=== PATIENT | female | born 1965 | race Caucasian/White ===

== ENCOUNTER 2018-03-28 17:28 | Observation (INO) ==
[2018-03-28 17:59] LABS: Bilirubin,Urine Negative (Negative); Blood,Urine Negative (Negative); Clarity,Urine Clear (Clear); Color,Urine Light Yellow (Yellow); Glucose,Urine (UA) Normal (Normal); Ketones,Urine Negative (Negative); Leukocyte Esterase,Urine Negative (Negative); Nitrite,Urine Negative (Negative); Protein,Urine Negative (Neg-Trace); Urobilinogen,Urine Normal (Normal)
--- NOTE | 2018-03-28 18:01 | Emergency Department Note ---
Disposition Clinical Impression: Chest pain Disposition: Admitted As Inpatient Condition: Good Referrals: Hansa Leon MD [Primary Care Provider] - Forms: ED Satisfaction Letter Time of Disposition: 20:07 Chest Pain HPI - General Chief Complaint: ED General Medical Stated Complaint: EPISODES OF FATIGE, HEADACHE, ABD/CHEST PAIN Time Seen by Provider: 03/28/18 18:01 Source: patient Mode of arrival: ambulatory Limitations: no limitations Vital Signs Reviewed: Yes Nursing Notes Reviewed: Yes - History of Present Illness HPI Narrative: 52-year-old female who presents today with intermittent chest pains in the center of her chest that radiated down her left arm for the last 3 days. She states that it makes her nauseated and lightheaded. She states it comes with a headache. She has not had a cardiac workup in over 5 years since she has never had a catheterization. She states she was stress 5 years ago and was told it was okay. She was watching her grandchildren the other day and could not come in but her pain was the worst 3 days ago and has been intermittent since then. 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 Patient is not a smoker, she states she does have a strong family history of heart disease. Severity scale (1-10): 6 - Related Data Home Medications Medication Instructions Recorded Confirmed Atenolol [Atenolol] 100 mg PO DAILY 04/11/16 03/28/18 Lisinopril [Zestril] 10 mg PO DAILY 04/11/16 03/28/18 Acetaminophen [Tylenol] 650 mg PO Q6HR PRN 11/24/17 03/28/18 Atorvastatin Calcium 80 mg PO QPM 11/24/17 03/28/18 Ibuprofen [Motrin] 800 mg PO Q8HR PRN 11/24/17 03/28/18 Sertraline [Zoloft] 100 mg PO DAILY 11/24/17 03/28/18 Allergies Allergy/AdvReac Type Severity Reaction Status Date / Time No Known Allergies Allergy Verified 12/14/17 07:36 Review of Systems: All other systems are negative except as noted/marked Chart generated with voice recognition software Nursing notes reviewed Old records reviewed Chest Pain PMH - Past Medical History Medical history: Reports: GERD, glaucoma, hyperlipidemia, hypertension, RA Surgical history: Reports: , hysterectomy, TAMEKA/BSO Psychiatric history: Reports: no psych history - Social History Smoking Status: Never smoker Alcohol use: Reports: none Drug use: Reports: none Physical Exam General: NAD, VSS Head: normocephalic, atraumatic Eyes: EOMI, PERRLA mouth: moist mucous membranes Neck: NO CLA, Supple Chest wall: normal rise, no crepitus, no deformity noted Lungs: moving air well, no distress Heart: RRR, no murmur Abd: soft, nontender, BS normal : deferred MSK: strength equal in all four extremities Ext: moves all four extremities, no obvious deformities Skin: cap refill normal, warm, dry neuro : CN2-12 grossly intact, A&Ox3 Psych: normal affect, not anxious - General Limitations: no limitations General appearance: alert Course Course Narrative: Patient presents today with intermittent chest pains for the last 3 days. She is currently chest pain-free. We did 2 sets of troponins which were negative. Her EKG was unremarkable. Chest and a cardiac workup in a while. We discussed staying in the hospital for for ACS rule out. She is comfortable with this plan. I spoke with Dr. Dias at 8:00 at night and he agreed to accept the patient. Orders will be placed. Vital Signs Temperature 98.6 F 03/28/18 17:34 Pulse Rate 68 03/28/18 17:34 Respiratory Rate 16 03/28/18 17:34 Blood Pressure 131/82 03/28/18 17:34 O2 Sat by Pulse Oximetry 95 03/28/18 17:34 Temperature 98.6 F 03/28/18 17:34 Pulse Rate 71 03/28/18 19:56 Respiratory Rate 20 03/28/18 19:56 Blood Pressure 126/77 03/28/18 19:56 O2 Sat by Pulse Oximetry 97 03/28/18 19:56 Oxygen Delivery Oxygen Delivery Room Air Chest Pain - Medical Records Medical records reviewed: Yes I reviewed the patient's medical records. - Lab Data Lab results reviewed: Yes I reviewed the patient's lab results. Result diagrams: 03/28/18 18:32 03/28/18 18:32 Lab Results 03/28/18 03/28/18 03/28/18 Range/Units 17:45 18:32 18:32 WBC (4.3-11.1) K/mcL RBC (3.82-4.97) M/mcL Hgb (11.5-15.4) g/dL Hct (35.3-44.9) % MCV (83.0-100.0) fL MCH (28.0-33.3) pg MCHC (31.6-35.5) g/dL RDW (11.5-14.5) % Plt Count (140-400) K/mcL MPV (9.4-12.4) fL Seg Neutrophils % % Lymphocytes % % Monocytes % % Eosinophils % % Neutrophils # (1.6-8.9) K/mcL Lymphocytes # (0.6-4.6) K/mcL Monocytes # (0.0-1.3) K/mcL Eosinophils # (0.0-0.6) K/mcL PT 10.9 (9.4-12.1) Seconds INR 1.0 APTT 31.7 (26.0-36.0) Seconds Sodium (136-145) mEq/L Potassium (3.5-5.1) mEq/L Chloride (98-107) mEq/L Carbon Dioxide (23-29) mEq/L BUN (6-20) mg/dL Creatinine (0.60-1.20) mg/dL Est GFR ( Amer) (> 60) Est GFR (Non-Af Amer) (> 60) BUN/Creatinine Ratio (6-26) Glucose (70-105) mg/dL Calculated Osmolality (280-300) Calcium (8.6-10.3) mg/dL Magnesium (1.6-2.6) mg/dL Total Bilirubin 0.7 (0.3-1.0) mg/dL Direct Bilirubin 0.1 (0.0-0.2) mg/dL Indirect Bilirubin 0.6 (0.0-1.2) mg/dL AST 32 (13-39) Units/L ALT 60 H (7-52) Units/L Alkaline Phosphatase 122 H (34-104) Units/L Troponin I (< 0.04) ng/mL Serum Total Protein 7.2 (6.4-8.9) g/dL Albumin 4.2 (3.5-5.7) g/dL Globulin 3.0 (2.4-3.5) g/dL Albumin/Globulin Ratio 1.4 (1.1-2.2) Lipase (11-82) Units/L Urine Color Light Yellow (Yellow) Urine Clarity Clear (Clear) Urine pH 7.0 (5.0-8.0) pH Units Ur Specific [place] 1.010 (1.010-1.025) Urine Protein Negative (Neg-Trace) mg/dL Urine Glucose (UA) Normal (Normal) mg/dL Urine Ketones Negative (Negative) mg/dL Urine Blood Negative (Negative) Urine Nitrite Negative (Negative) Urine Bilirubin Negative (Negative) Urine Urobilinogen Normal (Normal) mg/dL Ur Leukocyte Esterase Negative (Negative) Ur Culture Indicated? NO (NO) 03/28/18 03/28/18 03/28/18 Range/Units 18:32 18:32 18:32 WBC 15.9 H (4.3-11.1) K/mcL RBC 4.43 (3.82-4.97) M/mcL Hgb 13.3 (11.5-15.4) g/dL Hct 39.6 (35.3-44.9) % MCV 89.4 (83.0-100.0) fL MCH 30.0 (28.0-33.3) pg MCHC 33.6 (31.6-35.5) g/dL RDW 11.8 (11.5-14.5) % Plt Count 330 (140-400) K/mcL MPV 10.1 (9.4-12.4) fL Seg Neutrophils % 70.0 % Lymphocytes % 26.0 % Monocytes % 2.0 % Eosinophils % 2.0 % Neutrophils # 11.1 H (1.6-8.9) K/mcL Lymphocytes # 4.1 (0.6-4.6) K/mcL Monocytes # 0.3 (0.0-1.3) K/mcL Eosinophils # 0.3 (0.0-0.6) K/mcL PT (9.4-12.1) Seconds INR APTT (26.0-36.0) Seconds Sodium 137 (136-145) mEq/L Potassium 4.0 (3.5-5.1) mEq/L Chloride 101 (98-107) mEq/L Carbon Dioxide 29 (23-29) mEq/L BUN 16 (6-20) mg/dL Creatinine 0.60 (0.60-1.20) mg/dL Est GFR ( Amer) > 60 (> 60) Est GFR (Non-Af Amer) > 60 (> 60) BUN/Creatinine Ratio 27 H (6-26) Glucose 93 (70-105) mg/dL Calculated Osmolality 285 (280-300) Calcium 9.4 (8.6-10.3) mg/dL Magnesium (1.6-2.6) mg/dL Total Bilirubin (0.3-1.0) mg/dL Direct Bilirubin (0.0-0.2) mg/dL Indirect Bilirubin (0.0-1.2) mg/dL AST (13-39) Units/L ALT (7-52) Units/L Alkaline Phosphatase (34-104) Units/L Troponin I < 0.03 (< 0.04) ng/mL Serum Total Protein (6.4-8.9) g/dL Albumin (3.5-5.7) g/dL Globulin (2.4-3.5) g/dL Albumin/Globulin Ratio (1.1-2.2) Lipase 90 H (11-82) Units/L Urine Color (Yellow) Urine Clarity (Clear) Urine pH (5.0-8.0) pH Units Ur Specific [place] (1.010-1.025) Urine Protein (Neg-Trace) mg/dL Urine Glucose (UA) (Normal) mg/dL Urine Ketones (Negative) mg/dL Urine Blood (Negative) Urine Nitrite (Negative) Urine Bilirubin (Negative) Urine Urobilinogen (Normal) mg/dL Ur Leukocyte Esterase (Negative) Ur Culture Indicated? (NO) 03/28/18 03/28/18 Range/Units 18:32 19:29 WBC (4.3-11.1) K/mcL RBC (3.82-4.97) M/mcL Hgb (11.5-15.4) g/dL Hct (35.3-44.9) % MCV (83.0-100.0) fL MCH (28.0-33.3) pg MCHC (31.6-35.5) g/dL RDW (11.5-14.5) % Plt Count (140-400) K/mcL MPV (9.4-12.4) fL Seg Neutrophils % % Lymphocytes % % Monocytes % % Eosinophils % % Neutrophils # (1.6-8.9) K/mcL Lymphocytes # (0.6-4.6) K/mcL Monocytes # (0.0-1.3) K/mcL Eosinophils # (0.0-0.6) K/mcL PT (9.4-12.1) Seconds INR APTT (26.0-36.0) Seconds Sodium (136-145) mEq/L Potassium (3.5-5.1) mEq/L Chloride (98-107) mEq/L Carbon Dioxide (23-29) mEq/L BUN (6-20) mg/dL Creatinine (0.60-1.20) mg/dL Est GFR ( Amer) (> 60) Est GFR (Non-Af Amer) (> 60) BUN/Creatinine Ratio (6-26) Glucose (70-105) mg/dL Calculated Osmolality (280-300) Calcium (8.6-10.3) mg/dL Magnesium 2.0 (1.6-2.6) mg/dL Total Bilirubin (0.3-1.0) mg/dL Direct Bilirubin (0.0-0.2) mg/dL Indirect Bilirubin (0.0-1.2) mg/dL AST (13-39) Units/L ALT (7-52) Units/L Alkaline Phosphatase (34-104) Units/L Troponin I < 0.03 (< 0.04) ng/mL Serum Total Protein (6.4-8.9) g/dL Albumin (3.5-5.7) g/dL Globulin (2.4-3.5) g/dL Albumin/Globulin Ratio (1.1-2.2) Lipase (11-82) Units/L Urine Color (Yellow) Urine Clarity (Clear) Urine pH (5.0-8.0) pH Units Ur Specific [place] (1.010-1.025) Urine Protein (Neg-Trace) mg/dL Urine Glucose (UA) (Normal) mg/dL Urine Ketones (Negative) mg/dL Urine Blood (Negative) Urine Nitrite (Negative) Urine Bilirubin (Negative) Urine Urobilinogen (Normal) mg/dL Ur Leukocyte Esterase (Negative) Ur Culture Indicated? (NO) - Radiology Data Radiology results reviewed: Yes I reviewed the patient's radiology results. EXAMINATION: SINGLE XRAY VIEW OF THE CHEST 03/28/2018 6:22 pm COMPARISON: 05/12/2016 HISTORY: ORDERING SYSTEM PROVIDED HISTORY: chest pain Initial encounter. Acute illness. Chest pain for 2 months. FINDINGS: The lungs are clear. The cardiac and mediastinal contours are normal. There is no pleural effusion or pneumothorax. No acute osseous abnormality is identified. XR/XR chest 1V portable IMPRESSION: No acute cardiopulmonary abnormality. D/ / Marcelo Pink / Marcelo Pink Interpreting Provider: Marcelo Pink - EKG Data EKG attestation: Yes I reviewed and interpreted this EKG. EKG results narrative: EKG interpreted by myself as a sinus rhythm with rate of 64 QTc of [address] elevation I do not a prior EKG for comparison at this time Heart Score - Score History: Highly Suspicious EKG: Normal Age: 45-65 Risk Factors: Equal/Greater than 3 risk factor or history of atherosclerotic disease Troponin: Less than normal limit HEART Score Total: 5
[2018-03-28] MEDS ORDERED: Nitroglycerin 0.4 MG TAB.SUBL SL ONE (18:09)
[2018-03-28] MEDS ORDERED: Aspirin 81 MG TAB.CHEW PO ONE (18:09)
[2018-03-28 18:48] LABS: Hematocrit 39.6 % (35.3-44.9); Hemoglobin 13.3 g/dL (11.5-15.4); Mean Corpuscular HGB Conc 33.6 g/dL (31.6-35.5); Mean Corpuscular Volume 89.4 fL (83.0-100.0); Mean Platelet Volume 10.1 fL (9.4-12.4); Platelet Count 330 K/mcL (140-400); Red Blood Count 4.43 M/mcL (3.82-4.97); Red Cell Distribution Width 11.8 % (11.5-14.5)
[2018-03-28 18:49] LABS: Prothrombin Time 10.9 Seconds (9.4-12.1)
[2018-03-28 18:52] LABS: Activated Partial Thrombo Time 31.7 Seconds (26.0-36.0)
[2018-03-28 19:01] LABS: Albumin 4.2 g/dL (3.5-5.7); Albumin/Globulin Ratio 1.4 (1.1-2.2); BUN/Creatinine Ratio 27 (6-26); Bilirubin,Direct 0.1 mg/dL (0.0-0.2); Bilirubin,Indirect 0.6 mg/dL (0.0-1.2); Bilirubin,Total 0.7 mg/dL (0.3-1.0); Blood Urea Nitrogen 16 mg/dL (6-20); Calcium 9.4 mg/dL (8.6-10.3); Carbon Dioxide 29 mEq/L (23-29); Chloride 101 mEq/L (98-107); Glucose 93 mg/dL (70-105); Osmolality,Calculated 285 (280-300); Sodium 137 mEq/L (136-145); Total Protein 7.2 g/dL (6.4-8.9); eGFR For African Americans > 60 (> 60); eGFR For Non-African Americans > 60 (> 60)
[2018-03-28 19:07] LABS: Troponin I < 0.03 ng/mL (< 0.04)
[2018-03-28 19:45] LABS: Eosinophils # 0.3 K/mcL (0.0-0.6); Lymphocytes # 4.1 K/mcL (0.6-4.6); Monocytes # 0.3 K/mcL (0.0-1.3); Neutrophils # 11.1 K/mcL (1.6-8.9)
[2018-03-28] MEDS ORDERED: Naloxone 0.4 MG/ML INJ IVP PRN (21:02)
[2018-03-28] MEDS ORDERED: Ibuprofen 400 MG TABLET PO PRN (21:02)
[2018-03-28] MEDS ORDERED: Acetaminophen 325 MG TABLET PO PRN (21:02)
[2018-03-29] MEDS ORDERED: Ibuprofen 800 MG TABLET PO PRN (01:00)
[2018-03-29] MEDS ORDERED: Nitroglycerin 0.4 MG TAB.SUBL SL PRN (01:39)
[2018-03-29 06:54] LABS: Basophils % 0.3 %; Eosinophils # 0.2 K/mcL (0.0-0.6); Eosinophils % 1.7 %; Hematocrit 38.6 % (35.3-44.9); Hemoglobin 12.6 g/dL (11.5-15.4); Immature Granulocytes % 0.6 % (0-4); Lymphocytes # 2.9 K/mcL (0.6-4.6); Lymphocytes % 23.1 %; Mean Corpuscular HGB Conc 32.6 g/dL (31.6-35.5); Mean Corpuscular Hemoglobin 29.5 pg (28.0-33.3); Mean Corpuscular Volume 90.4 fL (83.0-100.0); Mean Platelet Volume 10.3 fL (9.4-12.4); Monocytes # 0.8 K/mcL (0.0-1.3); Monocytes % 6.6 %; Neutrophils # 8.4 K/mcL (1.6-8.9); Platelet Count 315 K/mcL (140-400); Red Blood Count 4.27 M/mcL (3.82-4.97); Red Cell Distribution Width 12.4 % (11.5-14.5); Segmented Neutrophils % 67.7 %
[2018-03-29 07:11] LABS: Prothrombin Time 11.1 Seconds (9.4-12.1)
[2018-03-29 07:14] LABS: Activated Partial Thrombo Time 30.2 Seconds (26.0-36.0)
[2018-03-29 07:23] LABS: BUN/Creatinine Ratio 29 (6-26); Blood Urea Nitrogen 18 mg/dL (6-20); Carbon Dioxide 28 mEq/L (23-29); Chloride 103 mEq/L (98-107); Chol/HDL Ratio 3.1 (0-4.9); Cholesterol 113 mg/dL (< 200); Glucose 88 mg/dL (70-105); HDL Cholesterol 37 mg/dL (40-59); LDL Cholesterol,Calculated 59 mg/dL (0-99); Osmolality,Calculated 289 (280-300); Potassium 3.9 mEq/L (3.5-5.1); Sodium 139 mEq/L (136-145); Triglycerides 85 mg/dL (< 150); eGFR For African Americans > 60 (> 60); eGFR For Non-African Americans > 60 (> 60)
[2018-03-29 10:35] VITALS: BP 107/65
--- NOTE | 2018-03-29 11:24 | Internal Med History&Physical ---
Date of Encounter: 03/29/18 Time of Encounter: 10:55 Assessment and Plan (1) Chest pain Current visit: Yes Status: Acute Doubt myocardial ischemic origin. Repeat cardiac enzymes were ordered through emergency room. Qualifiers: Chest pain type: precordial pain Qualified Code(s): R07.2 - Precordial pain (2) Hypertension Current visit: Yes Status: Chronic Continue lisinopril and atenolol. Qualifiers: Hypertension type: essential hypertension Qualified Code(s): I10 - Essential (primary) hypertension Internal Medicine - H&P: HPI Chief complaint: Chest pain Admitted From: Emergency Dept Plans for Post Hospital Care: Home History of present illness: Ms. Mckeon is a 52 year old female who came to emergency room stating she had recurrent chest pain. She reports onset was approximately 3 months ago. The chest pain is described as sharp pain in her left upper chest or the radiates to her left arm. It does not occur predictably with activity. It occurs up to 4 times daily and lasts between 3-15 minutes. There is occasional headache and dyspnea associated. She denies cough. She was evaluated in emergency room and admitted to [facility] floor for ongoing care needs. She denies pain at this time and states she feels back to her baseline. Cardiovascular history significant for hypertension but no NM heart failure DVT or pulmonary embolus. She reports a stress test several years ago was unremarkable. Past Med Surg Social Fam HX - Past Medical History Medical history: GERD, glaucoma, hyperlipidemia, hypertension, RA Additional medical history: kidney stones Psychiatric history: anxiety, depression - Past Surgical History Surgical History: , hysterectomy, TAMEKA/BSO Additional surgical history: carpal tunnel surgery, knee injections - Social History Smoking Status: Never smoker Smokeless Tobacco Status: No Alcohol use: none Drug use: none - Family History Father Living Status: Age at : 58 Cause of : NM Hx Family Cardiac Disorders: Yes (NM) Internal Medicine - H&P: Meds Atenolol [Atenolol] 100 mg PO DAILY 04/11/16 [History] Lisinopril [Zestril] 10 mg PO DAILY 04/11/16 [History] Acetaminophen [Tylenol] 650 mg PO Q6HR PRN 11/24/17 [History] Atorvastatin Calcium 80 mg PO QPM 11/24/17 [History] Ibuprofen [Motrin] 800 mg PO Q8HR PRN 11/24/17 [History] Sertraline [Zoloft] 100 mg PO DAILY 11/24/17 [History] Latanoprost [Xalatan] 1 drop BOTH EYES HS 03/29/18 [History] Quetiapine Fumarate [Seroquel] 50 mg PO DAILY 03/29/18 [History] 3 Allergy/AdvReac Type Severity Reaction Status Date / Time No Known Allergies Allergy Verified 12/14/17 07:36 All Systems PM: A 10-system review of systems was performed and is negative for pertinent findings except as documented above in the HPI. Review of systems: Gen.: She states her weight has been stable the past few months Cardiovascular: As per history of present illness Respiratory: She is a lifelong nonsmoker and has no known chronic lung disease GI: She denies disorders of her liver gallbladder or exocrine pancreas : She has had kidney stones treated with lithotripsy in the past. She denies other kidney or bladder disorders. She has had hysterectomy and 2 C-sections. Neurologic: She denies large distribution strokes or seizures. Endocrine: She states she is borderline diabetic. She has hyperlipidemia but denies thyroid disease Hematology/oncology: She denies blood disorders cancers or anemia Psychiatric: She has anxiety and depression but denies other mental health issues [place] skeletal: She has DJD. She has had bilateral carpal tunnel surgery. She denies gout or other bone joint or muscle disorders. - Constitutional Vitals: Temp Pulse Resp BP Pulse Ox 98.3 F 66 12 107/65 94 03/29/18 10:33 03/29/18 10:33 03/29/18 10:33 03/29/18 10:33 03/29/18 10:33 Exam: Gen.: She is a well-developed overweight female who appears in no acute distress at present time HEENT: Head is atraumatic and normocephalic. Eyes: EOMI. There is no scleral icterus. Mouth: Mucosa is moist. Neck: Supple and nontender. There is no thyromegaly or adenopathy noted. Heart: Regular without murmurs gallops or ectopics Chest: She has nontender in her chest wall to light compression. Lungs: No wheezes or crackles are heard. Abdomen: Soft and nontender. No masses or guarding are noted. Extremities: There is no cyanosis edema or clubbing noted. Dorsalis pedis and posttibial pulses are 1-2 over 2 bilaterally. Neurologic: Mental status: She is talkative and a good historian. Cranial nerves: Smile is symmetric. Forehead wrinkles bilaterally. Tongue protrudes midline. EOMI. Motor: There is no pronator drift. Cerebellar: Finger to nose is intact bilaterally. Skin: Warm and dry Internal Med - H&P Results - Labs CBC & Chem 7: 03/29/18 06:49 03/29/18 06:49 Labs: Short CBC 03/29/18 Range/Units 06:49 WBC 12.4 H (4.3-11.1) K/mcL Hgb 12.6 (11.5-15.4) g/dL Hct 38.6 (35.3-44.9) % Plt Count 315 (140-400) K/mcL Neutrophils # 8.4 (1.6-8.9) K/mcL BMP 03/29/18 06:49 Sodium 139 Potassium 3.9 Chloride 103 Carbon Dioxide 28 BUN 18 Creatinine 0.63 Glucose 88 Calcium 9.0 Cardiac Enzymes 03/29/18 03/29/18 03/29/18 Range/Units 01:31 06:49 09:20 Troponin I < 0.03 < 0.03 < 0.03 (< 0.04) ng/mL
--- NOTE | 2018-03-29 11:32 | Discharge Summary ---
Date of Encounter: 03/29/18 Time of Encounter: 10:55 - Discharge Diagnosis (1) Chest pain Priority: Primary Status: Acute Qualifiers: Chest pain type: precordial pain Qualified Code(s): R07.2 - Precordial pain (2) Hypertension Priority: Secondary Status: Chronic Qualifiers: Hypertension type: essential hypertension Qualified Code(s): I10 - Essential (primary) hypertension Hospital course: Ms. Mckeon is a 52 year old female who came to emergency room stating she had recurrent chest pain. She reports onset was approximately 3 months ago. The chest pain is described as sharp pain in her left upper chest or the radiates to her left arm. It does not occur predictably with activity. It occurs up to 4 times daily and lasts between 3-15 minutes. There is occasional headache and dyspnea associated. She denies cough. She was evaluated in emergency room and admitted to [facility] for ongoing care needs. Initial orders were written by the emergency room physician. I saw her on March 29 and performed a history physical and discharge. Repeat cardiac enzymes showed no evidence of myocardial damage. When I saw her I did not think pain was likely to be of myocardial ischemic origin. Etiology of the pain was not determined with certainty. She felt stable for discharge home which I felt was reasonable. She will follow with her PCP Dr. Leon within 1 week. - Time Spent with Patient Total time spent providing and/or coordinating discharge services: - Discharge Medications Home Medications: Atenolol 100 mg PO DAILY 04/11/16 [History] Lisinopril [Zestril] 10 mg PO DAILY 04/11/16 [History] Acetaminophen [Tylenol] 650 mg PO Q6HR PRN 11/24/17 [History] Atorvastatin Calcium 80 mg PO QPM 11/24/17 [History] Ibuprofen [Motrin] 800 mg PO Q8HR PRN 11/24/17 [History] Sertraline [Zoloft] 100 mg PO DAILY 11/24/17 [History] Latanoprost [Xalatan] 1 drop BOTH EYES HS 03/29/18 [History] Quetiapine Fumarate [Seroquel] 50 mg PO DAILY 03/29/18 [History] Allergies/Adverse Reactions: 3 Allergy/AdvReac Type Severity Reaction Status Date / Time No Known Allergies Allergy Verified 12/14/17 07:36 Date of admission: 03/28/18 20:23 Primary care physician: Hansa Leon - Constitutional Vitals: Temp Pulse Resp BP Pulse Ox 98.3 F 66 12 107/65 94 03/29/18 10:33 03/29/18 10:33 03/29/18 10:33 03/29/18 10:33 03/29/18 10:33 - Patient Status Disposition: Home, Self-Care Condition: Good - Discharge Instructions Follow Up With: Hansa Leon MD [Primary Care Provider] - 1 week - Diet and Activity Activity: resume usual activities as tolerated Diet: advance to your usual diet
--- NOTE | 2018-03-29 18:45 | Electrocardiograph Report ---
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
--- NOTE | 2018-03-29 18:55 | Electrocardiograph Report ---
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
== END 2018-03-29 12:35 | disposition home or self-care (01) ==
LOC: EMEROOPIK 17:28 → INPPIK 17:28
PROVIDERS: ADMIT Internal Medicine; ATTEND Internal Medicine